=== PATIENT | female | born 1975 | race Hispanic/Latino ===

== ENCOUNTER 2017-03-25 19:58 | Emergency (ER) | payer BC ==
[2017-03-25 20:51] LABS: BASOPHILS % (AUTO) 0.7 % (0.0-5.0); EOSINOPHILS % (AUTO) 1.5 % (0.0-8.0); HEMATOCRIT 38.5 % (36-48); LYMPHOCYTES % (AUTO) 22.3 % (21.0-51.0); MEAN CORPUSCULAR HEMOGLOBIN 29.9 pg (27.0-33.0); MEAN CORPUSCULAR HGB CONC 34.9 g/dL (32.0-36.0); MEAN CORPUSCULAR VOLUME 85.7 fL (79-99); MONOCYTES % (AUTO) 6.4 % (3.0-13.0); NEUTROPHILS % (AUTO) 69.1 % (40.0-77.0); PLATELET COUNT (AUTO) 263 K/uL (130-400); RED BLOOD CELL COUNT(AUTO) 4.49 MIL/uL (4.00-5.50); RED CELL DISTRIBUTION WIDTH 12.7 % (11.0-15.5); WHITE BLOOD COUNT (AUTO) 10.5 K/uL (4.8-10.8)
[2017-03-25 21:03] LABS: BILIRUBIN,URINE Negative (NEGATIVE); COLOR,URINE Yellow (YELLOW); GLUCOSE, URINE (UA) Negative (NEGATIVE); KETONES,URINE Negative (NEGATIVE); LEUKOCYTE ESTERASE ,URINE Negative (NEGATIVE); NITRATE,URINE Negative (NEGATIVE); OCCULT BLOOD,URINE Negative (NEGATIVE); PROTEIN,URINE Negative (NEGATIVE)
[2017-03-25 21:05] LABS: APPEARANCE,URINE SLIGHTLY CLOUDY (CLEAR)
[2017-03-25] MEDS ORDERED: MECLIZINE HCL 25 MG TABLET ONE (21:06)
[2017-03-25 21:07] LABS: HCG,QUAL RESULT NEGATIVE (NEGATIVE)
[2017-03-25] MEDS ORDERED: ONDANSETRON 4 MG TABLET ONE (21:07)
[2017-03-25 21:12] LABS: POTASSIUM 3.2 mmol/L (3.5-5.1)
[2017-03-25 21:15] LABS: BACTERIA,URINE Few /HPF (None Seen); MUCUS,URINE Few LPF (None Seen); RBC,URINE 0-1 /HPF (0-1); SQUAMOUS EPITHELIAL CELL,UR Few /LPF (0-2); WBC,URINE 0-1 /HPF (0-1)
[2017-03-25 21:17] LABS: ALBUMIN 3.8 g/dL (3.5-5.0); BILIRUBIN,TOTAL 0.5 mg/dL (0.2-1.0); TOTAL PROTEIN, SERUM 7.5 g/dL (6.0-8.3)
[2017-03-25 21:28] LABS: THYROID STIMULATING HORMONE 1.16 uIU/mL (0.36-3.74)
[2017-03-25] MEDS ORDERED: POTASSIUM CHLORIDE 20 MEQ ERTAB PO ONE (21:29)
== END 2017-03-25 22:47 | disposition home or self-care (01) ==
LOC: EDH 19:58
DX: H81.311 Aural vertigo, right ear (principal); J01.90 Acute sinusitis, unspecified; R11.2 Nausea with vomiting, unspecified; R10.12 Left upper quadrant pain
CPT/HCPCS: 36415; 80053; 81001; 81025; 83690; 84443; 85025; 99284; Q0162

== ENCOUNTER 2018-09-30 20:24 | Emergency (ER) | payer BC ==
[2018-09-30] MEDS ORDERED: AMOXICILLIN/POTASSIUM CLAV 500-125 TABLET PO ONE (20:47)
== END 2018-09-30 21:07 | disposition home or self-care (01) ==
LOC: EDH 20:24
DX: H66.91 Otitis media, unspecified, right ear (principal)

== ENCOUNTER 2018-12-18 13:34 | Emergency (ER) | payer BC, OTHER ==
[2018-12-18] MEDS ORDERED: FAMOTIDINE 20MG TAB 20 MG TAB ONE (13:50)
[2018-12-18] MEDS ORDERED: METHYLPREDNISOLONE SOD SUCC 40MG/ML 1ML ONE (13:50)
[2018-12-18] MEDS ORDERED: DiphenhydrAMINE HCL 50 MG/ML VIAL ONE (13:51)
== END 2018-12-18 14:55 | disposition home or self-care (01) ==
LOC: EDH 13:34
DX: L50.0 Allergic urticaria (principal)
CPT/HCPCS: 96372 ×2; 99284; J1200; J2920